=== PATIENT | male | born 1990 | race Caucasian/White ===

== ENCOUNTER 2018-08-17 19:07 | Emergency (ER) | payer SELFPAY ==
[~2018-08-17 19:07] MED LIST: CIPRO500 MG PO
[2018-08-17 19:15] VITALS: BP 132/74
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
[2018-08-17 20:14] LABS: ABSOLUTE BASOPHIL COUNT 0 /CUMM (0.0-0.2); ABSOLUTE EOSINOPHIL COUNT 0.4 /CUMM (0.0-0.7); ABSOLUTE GRANULOCYTE CT 7.3 /CUMM (1.4-6.5); ABSOLUTE LYMPH COUNT 2.5 /CUMM (1.2-3.4); ABSOLUTE MONOCYTE COUNT 0.6 /CUMM (0.10-0.60); BASOPHIL % 0.3 % (0.0-2.0); EOSINOPHIL % 3.9 % (0-5); GRANULOCYTE % 67.3 % (42.2-75.2); HEMATOCRIT 49.1 % (42-52); MEAN CORPUSCULAR HGB 30.5 PG (27.0-31.0); MEAN CORPUSCULAR VOLUME 92.4 FL (80.0-94.0); MEAN PLATELET VOLUME 8.9 FL (7.4-10.4); PLATELET COUNT 242 /CUMM (130-400); RBC DISTRIBUTION WIDTH 13.4 % (11.5-14.5); RED BLOOD CELL CT 5.31 /CUMM (4.70-6.10); WHITE BLOOD CELL COUNT 10.9 /CUMM (4.8-10.8)
[2018-08-17] MEDS ORDERED: IBUPROFEN800 M1 PO (20:31)
== END 2018-08-17 20:41 ==
LOC: ERH 19:07
PROVIDERS: Physician Assistant Medical
DX: M79.89 Other specified soft tissue disorders (principal)
CPT/HCPCS: 81001